=== PATIENT | female | born 1945 | race Caucasian/White ===

== ENCOUNTER 2018-06-15 18:00 | Inpatient (IN) | payer MEDICARE, BC ==
[~2018-06-15] VITALS: Ht 172.7 cm; Wt 67.0 kg
[2018-06-15] VITALS (7 sets, daily range): BP systolic 134–168; BP diastolic 52–68
[~2018-06-15 18:00] MED LIST: LANS30CA56 PO; LISI-222 PO; MULT-1085 PO; OMEG1CAP2 PO; ROPI0.5T2 PO; SIMV80TA2 PO; [UNRECOGNIZED DRUG - CODE] IJ
[2018-06-15] MEDS ORDERED: fentaNYL/PF 50MCG/1 ML 2ML syringe ONE (18:03)
[2018-06-15] MEDS ORDERED: midazolam 2 mg/2 ml injection ONE (18:03)
[2018-06-15] MEDS ORDERED: heparin 1,000unit/ml 10ml vial 10 ML ONE (18:03)
[2018-06-15] MEDS ORDERED: iohexol 350MG/ML 100ml bottle IV ONE (18:04)
[2018-06-15] MEDS ORDERED: heparin 1,000 UNITS/NS 500ml 500 ML ONE (18:04)
[2018-06-15] MEDS ORDERED: LIDOcaine 1% (10mg/ml)w/preservative injection 20ml MDV ONE (18:32)
[2018-06-15] MEDS ORDERED: atropine 0.1mg/ml 10ml syringe ONE (18:44)
[2018-06-15] MEDS ORDERED: heparin 25,000 UNIT/250ml bag 250 ML IV ONE (19:21)
[2018-06-15] MEDS ORDERED: nitroGLYCERIN 1gm ointment UD TP ONE (19:45)
--- NOTE | 2018-06-15 20:30 | NUR ---
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 Pt oriented to room, call light, plan of care and all questions answered. Heparin gtt at 1000units/hr. R groin site dressing clean and intact. R radial site with pressure band on with 10cc of air. Pt lying flat in bed. Post op vitals set. VSS. Will continue to monitor. Addendum: 06/16/18 at 0549 by Shagufta Sampson RN Pt direct admit from [facility] office, no initial ptt lab was drawn before heparin gtt started.
[2018-06-15] MEDS ORDERED: ondansetron/PF 4mg/2ml inj IV PRN (20:35)
[2018-06-15] MEDS ORDERED: acetaminophen 325mg tablet PO PRN (20:35)
[2018-06-15] MEDS ORDERED: HYDROcodone/acetaminophen 10/325mg tab PO PRN (20:35)
[2018-06-15] MEDS ORDERED: HYDROcodone/acetaminophen 5mg/325mg tablet PO PRN (20:35)
[2018-06-15] MEDS ORDERED: proCHLORperazine 10 MG/2 ml inj IV PRN (20:35)
[2018-06-15] MEDS ORDERED: OXAZEpam 15mg capsule PO PRN (20:35)
[2018-06-16 02:00] VITALS: BP 136/53
[2018-06-16 02:47] LABS: CHOL/HDL RATIO 2.7 (0.00-4.99); CHOLESTEROL 125 MG/DL (0-200); HDL CHOLESTEROL 46 MG/DL (35-60); LDL CHOLESTEROL 75 MG/DL (50-100); TRIGLYCERIDES 55 MG/DL (20-135)
--- NOTE | 2018-06-16 05:48 | NUR ---
critical ptt of >153, heparin gtt off. will continue to monitor.
[2018-06-16 06:00] VITALS: BP 136/68
--- NOTE | 2018-06-16 06:15 | NUR ---
Problems reprioritized. Patient report given, questions answered & plan of care reviewed with Emerald BURCH.
[2018-06-16] MEDS ORDERED: clopidogrel 75mg tablet PO SCH (08:00)
[2018-06-16] MEDS ORDERED: CLOP75TA35 PO (08:01)
[2018-06-16] MEDS ORDERED: clopidogrel 75mg tablet PO ONE (09:10)
--- NOTE | 2018-06-16 11:46 | NUR ---
Pt discharged from unit at 1135. Pt discharge packet and education reviewed before signing and sent with patient along with all other belongings. Patient's PIV was removed with cannula intact, and telemetry monitoring was removed. Pt was wheeled down by staff and left via private vehicle with daughter.
== END 2018-06-16 11:57 | disposition home or self-care (01) | DRG 69 ==
LOC: PCU 3S 18:00
PROVIDERS: ADMIT Internal Medicine Interventional Cardiology; ATTEND Internal Medicine Interventional Cardiology
PROC: B41F1ZZ Fluoroscopy of Right Lower Extremity Arteries using Low Osmolar Contrast (ICD-10-PCS; principal; 2018-06-15)
PROC: B31N1ZZ Fluoroscopy of Other Upper Arteries using Low Osmolar Contrast (ICD-10-PCS; 2018-06-15)
DX: G45.8 Other transient cerebral ischemic attacks and related syndromes (principal); I25.10 Atherosclerotic heart disease of native coronary artery without angina pectoris; I10 Essential (primary) hypertension; E78.5 Hyperlipidemia, unspecified; I73.9 Peripheral vascular disease, unspecified; I25.2 Old myocardial infarction; Z95.1 Presence of aortocoronary bypass graft; Z79.01 Long term (current) use of anticoagulants
CPT/HCPCS: 36225; 36415; 80061; 85730; 87070; 99285; A4620; C1760; C1769; G0378; J0461; J1644; J2001; J2250; J3010; J7030; Q9967

== ENCOUNTER 2020-02-29 14:55 | Inpatient (IN) | payer BC, MEDICARE ==
[~2020-02-29] VITALS: Ht 172.7 cm; Wt 63.6 kg
[~2020-02-29 14:55] MED LIST changes: +CLOP75TA35 PO; -ROPI0.5T2 PO; +ROPI0.5T4 PO
[2020-02-29] MEDS ORDERED: normal saline 1000ML IV soln IVB ONE (15:20)
[2020-02-29] MEDS ORDERED: digoxin 250mcg/ml 2ml ampule IV ONE (15:20)
[2020-02-29 15:38] LABS: BASOPHILS % (AUTO) 0.2 % (0-1); EOSINOPHILS % (AUTO) 0 % (0-6); HEMATOCRIT 39.6 % (35.0-45.0); HEMOGLOBIN 11.8 g/dl (12.0-16.0); LYMPHOCYTES # (AUTO) 0.7 X10'3 (1.1-4.8); MEAN CORPUSCULAR HEMOGLOBIN 22.5 PG (27.0-31.0); MEAN CORPUSCULAR HGB CONC 29.7 g/dL (33.0-36.5); MEAN CORPUSCULAR VOLUME 75.8 FL (78-98); MEAN PLATELET VOLUME 11.7 FL (7.4-10.4); MONOCYTES % (AUTO) 5.6 % (2-12); NEUTROPHILS # (AUTO) 15.6 X10'3 (1.8-7.7); NEUTROPHILS % (AUTO) 90.2 % (42-75); PLATELET COUNT 98 X10'3 (140-440); RED BLOOD COUNT 5.23 X10'6 (4.20-5.60); RED CELL DISTRIBUTION WIDTH 20.6 % (11.5-14.5); WHITE BLOOD COUNT 17.3 X10'3 (4.5-11.0)
[2020-02-29 15:51] LABS: PARTIAL THROMBOPLASTIN TIME 30 SECONDS (22-32)
[2020-02-29 16:02] LABS: ALANINE AMINOTRANSFERASE 99 U/L (12-78); ALBUMIN 2.7 G/DL (3.4-5.0); ALBUMIN/GLOBULIN RATIO 0.8 (1.1-1.5); ALKALINE PHOSPHATASE 104 IU/L (46-116); ANION GAP 15 (8-16); ASPARTATE AMINO TRANSFERASE 94 U/L (10-37); BILIRUBIN,TOTAL 2.5 MG/DL (0.1-1.0); BLOOD UREA NITROGEN 69 MG/DL (7-18); BUN/CREATININE RATIO 27.9 (6.6-38.0); CALCIUM 8.9 MG/DL (8.5-10.1); CHLORIDE 105 MMOL/L (99-107); CREATININE 2.47 MG/DL (0.40-0.90); GLUCOSE 68 MG/DL (70-104); MAGNESIUM 2.3 MG/DL (1.5-2.4); SODIUM 145 MMOL/L (135-145); TOTAL CARBON DIOXIDE 25.3 MMOL/L (24-32); TOTAL PROTEIN 6.1 G/DL (6.4-8.2); eGFR 19 ML/MIN
[2020-02-29 16:03] LABS: POTASSIUM 2.5 MMOL/L (3.5-5.1)
[2020-02-29 16:11] LABS: PLATELET ESTIMATE DECREASED
[2020-02-29] MEDS ORDERED: potassium Cl 20 mEq SR tablet PO STA (16:11)
[2020-02-29 16:12] LABS: ANISOCYTOSIS 3+; HYPOCHROMASIA 1+; MICROCYTOSIS 1+; POLYCHROMASIA 1+
[2020-02-29] MEDS ORDERED: potassium Cl 10 mEq/100mL bag IV ONE ×2 (16:15)
[2020-02-29 16:20] LABS: ELLIPTOCYTES 1+; SCHISTOCYTES FEW
[2020-02-29] MEDS ORDERED: magnesium 2GM in 50ml NS 50 ML IV ONE (17:15)
[2020-02-29] MEDS: diltiazem-NS 100mg/100ml 100 ML IV SCH (18:11)
--- NOTE | 2020-02-29 19:15 | NUR ---
HR 140-146, BP 103/51, DR. JAMES UPDATED. PTS 02 SATS 94% ON 2 L, PT REPORTS SHE DOES NOT WEAR O2 AT HOME. PT JUST HAD EPISODE OF INCONTINENCE OF STOOL, DIARRHEA.
--- NOTE | 2020-02-29 20:19 | NUR ---
VERBAL FROM DR. JAMES TO INCREASE CARDIZIEM GTT TO 10 ML/HR. HR 120'S. PT HAD ANOTHER EPISODE OF DIARRHEA INICONTENCE. ASSISTED BY TECH TO CLEAN HERSELF AND BRIEF PLACED. DR JAMES UPDATED OF THIS.
[2020-02-29] MEDS ORDERED: calcium gluconate inj. 1 GM in normal saline 100ml IV soln 100 ML IV ONE (21:30)
[2020-02-29] MEDS ORDERED: CALCIUM GLUC 1gm/50ml NACL,iso 50 ML IV ONE (21:35)
--- NOTE | 2020-02-29 21:35 | NUR ---
DR JAMES AT BEDSIDE TO [facility]. PTS BP 91/59. PT TO BE PRESENTED FOR ADMISSION TO HOSPITALIST.
--- NOTE | 2020-02-29 21:48 | NUR ---
BP 90/68. PER DR. ASHRAF REQUEST, PTS CARDIZIEM GTT DROPPED BACK TO 5 MG/HR (WAS AT 10 ML/HR OVER THE PAST HR AND RATE DOWN TO 80'S). NOW TALKING TO DR. PYLE ABOUT ADMISSION.
[2020-02-29] MEDS ORDERED: ATOR40TA72 PO (22:20)
[2020-02-29] MEDS ORDERED: ROPI0.5T4 PO (22:20)
[2020-02-29] MEDS ORDERED: AMLO5TAB16 PO (22:20)
[2020-02-29] MEDS ORDERED: LISI-600 PO (22:20)
[2020-02-29] MEDS ORDERED: SERT100T10 PO (22:20)
[2020-02-29] MEDS ORDERED: OMEP-50 PO (22:20)
[2020-02-29] MEDS ORDERED: NITR0.4T48 SL (22:20)
--- NOTE | 2020-02-29 22:58 | NUR ---
bp 95/61, hr 103. awaiting hospitalist. ocntinues on 2 liters nc and sats 98%.
--- NOTE | 2020-02-29 23:44 | NUR ---
STRAIGHT CATHED FOR UA. TOTAL URINE OUT 350 CC' TAPAN CLEAR URINE. HR 93-115, AFIB WITH PVC'S. PT CHANGED OUT OF SOILED DIAPER FROM DIARRHEA. SKIN INTAC T. PHOTOS TAKEN OF HER RIGHT TOE WOUNDS.
[2020-03-01 00:04] LABS: CLARITY,URINE CLEAR (Clear); COLOR,URINE YELLOW (Yellow); GLUCOSE, URINE NEGATIVE (Neg); KETONES,URINE NEGATIVE (Neg); LEUKOCYTE ESTERASE ,URINE NEGATIVE (Neg); NITRITES, URINE NEGATIVE (Neg); OCCULT BLOOD,URINE TRACE-INTACT (Neg); PROTEIN,URINE TRACE mg/dl (Neg)
[2020-03-01 00:06] LABS: UA COLLECTION TYPE STRAIGHT CATH
[2020-03-01 00:07] LABS: BACTERIA,URINE 1+ /HPF (Neg); RBC,URINE 0-2 /HPF (0-2); SQUAMOUS EPITHELIAL CELL,UR FEW /LPF (FEW); WBC,URINE 0-4 /HPF (0-4)
[2020-03-01] MEDS ORDERED: mag hydrox/Alum hydrox/simeth 30ml oral suspension PO PRN (00:25)
[2020-03-01] MEDS ORDERED: potassium Cl 40MEQ/1/2NS 520ml 520 ML IV PRN ×2 (00:25)
[2020-03-01] MEDS ORDERED: ondansetron/PF 4mg/2ml inj IV PRN (00:25)
[2020-03-01] MEDS ORDERED: acetaminophen 325mg tablet PO PRN (00:25)
[2020-03-01] MEDS ORDERED: magnesium hydroxide 30ml (MOM) UD suspension PO PRN (00:25)
[2020-03-01] MEDS ORDERED: potassium Cl 20 mEq SR tablet PO PRN ×2 (00:25)
[2020-03-01] MEDS ORDERED: octreotide 100mcg/1 ml ampule SQ ONE ×2 (00:30→01:10)
[2020-03-01] MEDS: normal saline 1000ml 1,000 ML IV SCH (01:01)
--- NOTE | 2020-03-01 01:07 | NUR ---
DR. PYLE AT BEDSIDE FOR ADMISSION. PT GIVEN 1ST DOSE OF SANDOSTATIN SQ. REPORTS PT HAS NOT BEEN TAKING THIS HER HOME MED, SHE HAS NOT REFILLED IT D/T COST. PT CONTINUES ON CARDIZIEM GTT AT 5 MG/HR. BP 94/58. MIVF INFUSING, NS AT 40/HR.
--- NOTE | 2020-03-01 03:54 | NUR ---
Called Dr. Ha to report bp being in the 78/S and he reports to adm NS 250 bolus slowly r/t CHF.
--- NOTE | 2020-03-01 05:51 | NUR ---
DR. PYLE AT BEDSIDE AND UPDATED THAT PTS BP REMAINS LOW AFTER NS BOLUS OF 250. , 94/63, 92/64, 88/57. REPORTS THAT THIS BP IS EXPECTED WITIH HER CURRENT MEDICAL CONDITION. STATES IF PT IS MENTATING WELL AND OTHER VSS, THEN THIS LOWER BP IS ACCEPTABLE AT THIS TIME.
[2020-03-01] MEDS: K and/or MAG REPLACEMENT MC SCH ×2 (08:00→20:00)
[2020-03-01] MEDS ORDERED: octreotide 100mcg/1 ml ampule SQ SCH (08:00)
[2020-03-01 08:59] LABS: EOSINOPHILS % (AUTO) 0 % (0-6); HEMOGLOBIN 12.1 g/dl (12.0-16.0); RED CELL DISTRIBUTION WIDTH 20.7 % (11.5-14.5)
[2020-03-01 09:00] LABS: BASOPHILS % (AUTO) 0 % (0-1); LYMPHOCYTES # (AUTO) 0.8 X10'3 (1.1-4.8); LYMPHOCYTES % (AUTO) 4.9 % (21-51); MEAN CORPUSCULAR HEMOGLOBIN 22.5 PG (27.0-31.0); MEAN CORPUSCULAR HGB CONC 29.6 g/dL (33.0-36.5); MEAN PLATELET VOLUME 12.2 FL (7.4-10.4); MONOCYTES # (AUTO) 1.1 X10'3 (0-0.9); MONOCYTES % (AUTO) 6.6 % (2-12); NEUTROPHILS # (AUTO) 15.4 X10'3 (1.8-7.7); NEUTROPHILS % (AUTO) 88.5 % (42-75); PLATELET COUNT 109 X10'3 (140-440); WHITE BLOOD COUNT 17.4 X10'3 (4.5-11.0)
[2020-03-01 09:25] LABS: ALANINE AMINOTRANSFERASE 94 U/L (12-78); ALBUMIN 2.3 G/DL (3.4-5.0); ALBUMIN/GLOBULIN RATIO 0.7 (1.1-1.5); ALKALINE PHOSPHATASE 97 IU/L (46-116); ANION GAP 13 (8-16); ASPARTATE AMINO TRANSFERASE 90 U/L (10-37); BILIRUBIN,TOTAL 2.2 MG/DL (0.1-1.0); BLOOD UREA NITROGEN 72 MG/DL (7-18); BUN/CREATININE RATIO 30.3 (6.6-38.0); CALCIUM 8.4 MG/DL (8.5-10.1); CHLORIDE 109 MMOL/L (99-107); CREATININE 2.38 MG/DL (0.40-0.90); GLUCOSE 92 MG/DL (70-104); MAGNESIUM 2.7 MG/DL (1.5-2.4); POTASSIUM 3.9 MMOL/L (3.5-5.1); SODIUM 144 MMOL/L (135-145); TOTAL CARBON DIOXIDE 21.6 MMOL/L (24-32); TOTAL PROTEIN 5.6 G/DL (6.4-8.2); eGFR 20 ML/MIN
[2020-03-01 09:28] LABS: ANISOCYTOSIS 3+; MICROCYTOSIS 1+; PLATELET ESTIMATE DECREASED
[2020-03-01 09:29] LABS: BURR CELLS 1+; ELLIPTOCYTES 1+; HYPOCHROMASIA 1+; POIKILOCYTOSIS 1+
[2020-03-01] MEDS: sertraline 50mg tablet PO SCH (09:49)
[2020-03-01] MEDS: octreotide 100mcg/1 ml ampule SQ SCH ×2 (09:49→20:00)
[2020-03-01] MEDS: pantoprazole 40mg Tablet.DR PO SCH (09:49)
[2020-03-01] MEDS: clopidogrel 75mg tablet PO SCH (09:49)
--- NOTE | 2020-03-01 10:18 | NUR ---
Performed pericare as pt was incontinent of stool that was loose. Also transferred pt to a hospital bed.
[2020-03-01] MEDS: diltiazem-NS 100mg/100ml 100 ML IV SCH (11:33)
--- NOTE | 2020-03-01 12:19 | NUR ---
Stopped Cardizem drip as pt's BP is 74/47.
--- NOTE | 2020-03-01 12:26 | NUR ---
Spoke with Dr Fu regarding Cardizem being turned off. Dr Fu agrees with Cardizem being off.
--- NOTE | 2020-03-01 12:27 | NUR ---
Dr Fu at pt's bedside.
[2020-03-01] MEDS ORDERED: normal saline 500ml IV soln 1,000 ML IV ONE (12:35)
[2020-03-01 17:00] VITALS: BP 103/60
--- NOTE | 2020-03-01 17:00 | NUR ---
Patient in room and in bed. Patient was cleaned up and repositioned. VSS: BP:103/60, HR: 57, RR:20, O2: 96% 2LNC, Pain 4/10. Patient orientated to room and items in room. Patient hooked up to oxygen and call light in reach, bed in low lock position. NS running at 40ml/hr, wound pictures taken, patients items prostatic leg in cabinet with clothing, pt had phone by side. Patient Incont, a wick was placed, patient had a liquid BM. Will continue to monitor.
--- NOTE | 2020-03-01 18:37 | NUR ---
Problems reprioritized. Patient report given, questions answered & plan of care reviewed with Bradley BURCH.
[2020-03-01 19:00] VITALS: BP 103/60
[2020-03-01 23:00] VITALS: BP 88/40
[2020-03-02] VITALS (11 sets, daily range): BP systolic 70–118; BP diastolic 45–85
[2020-03-02] MEDS: diltiazem-NS 100mg/100ml 100 ML IV SCH (01:30)
--- NOTE | 2020-03-02 06:10 | NUR ---
Patient in room PCU 3027. I have received report from Alexandria BURCH and had the opportunity to ask questions and assume patient care.
[2020-03-02 06:28] LABS: BASOPHILS % (AUTO) 0.1 % (0-1); EOSINOPHILS % (AUTO) 0 % (0-6); HEMOGLOBIN 11.1 g/dl (12.0-16.0); LYMPHOCYTES # (AUTO) 0.6 X10'3 (1.1-4.8); LYMPHOCYTES % (AUTO) 4.5 % (21-51); MEAN CORPUSCULAR HEMOGLOBIN 22.5 PG (27.0-31.0); MEAN CORPUSCULAR HGB CONC 29.9 g/dL (33.0-36.5); MEAN CORPUSCULAR VOLUME 75.2 FL (78-98); MONOCYTES % (AUTO) 7.2 % (2-12); NEUTROPHILS # (AUTO) 12.1 X10'3 (1.8-7.7); NEUTROPHILS % (AUTO) 88.2 % (42-75); PLATELET COUNT 97 X10'3 (140-440); RED BLOOD COUNT 4.91 X10'6 (4.20-5.60); RED CELL DISTRIBUTION WIDTH 20.2 % (11.5-14.5); WHITE BLOOD COUNT 13.7 X10'3 (4.5-11.0)
[2020-03-02 06:37] LABS: ALANINE AMINOTRANSFERASE 85 U/L (12-78); ALBUMIN 2.2 G/DL (3.4-5.0); ALBUMIN/GLOBULIN RATIO 0.7 (1.1-1.5); ALKALINE PHOSPHATASE 94 IU/L (46-116); ANION GAP 10 (8-16); ASPARTATE AMINO TRANSFERASE 57 U/L (10-37); BILIRUBIN,TOTAL 1.7 MG/DL (0.1-1.0); BLOOD UREA NITROGEN 81 MG/DL (7-18); BUN/CREATININE RATIO 30.9 (6.6-38.0); CALCIUM 8.7 MG/DL (8.5-10.1); CHLORIDE 110 MMOL/L (99-107); CREATININE 2.62 MG/DL (0.40-0.90); GLUCOSE 105 MG/DL (70-104); POTASSIUM 3.3 MMOL/L (3.5-5.1); SODIUM 142 MMOL/L (135-145); TOTAL PROTEIN 5.4 G/DL (6.4-8.2); eGFR 18 ML/MIN
[2020-03-02 07:03] LABS: PLATELET ESTIMATE DECREASED
[2020-03-02 07:04] LABS: ANISOCYTOSIS 3+; ELLIPTOCYTES 1+; HYPOCHROMASIA 1+; LARGE PLATELETS FEW; MICROCYTOSIS 1+; POLYCHROMASIA 1+; SCHISTOCYTES FEW; TARGET CELLS FEW
[2020-03-02 07:05] LABS: BURR CELLS 2+
[2020-03-02] MEDS: sertraline 50mg tablet PO SCH (07:49)
[2020-03-02] MEDS: pantoprazole 40mg Tablet.DR PO SCH (07:49)
[2020-03-02] MEDS: normal saline 1000ml 1,000 ML IV SCH (07:49)
[2020-03-02] MEDS: clopidogrel 75mg tablet PO SCH (07:49)
[2020-03-02] MEDS: K and/or MAG REPLACEMENT MC SCH ×2 (08:00→20:09)
[2020-03-02] MEDS: octreotide 100mcg/1 ml ampule SQ SCH ×2 (09:46→19:41)
--- NOTE | 2020-03-02 10:05 | NUR ---
Dr. Sanchez at bedside with patient and Nurse. is aware of patients Echo results, Atrial Fib Elevated MR. will consult Dr. Tolliver tomorrow to view patient. New orders 25 metoprolol 25 BID Po starting now.Will continue to monitor. Addendum: 03/02/20 at 1150 by Griselda Jones RN Stop Cardizem drip and start Po medication. Per Dr. Sanchez
[2020-03-02] MEDS ORDERED: atropine 0.1mg/ml 10ml syringe ONE (15:00)
[2020-03-02] MEDS ORDERED: amiodarone 50MG/ML inj IV ONE (15:00)
[2020-03-02] MEDS ORDERED: sod chloride 0.9% 10ml flush syringe IV ONE (15:00)
[2020-03-02] MEDS ORDERED: epiNEPHrine 0.1mg/ml 10ml syringe ONE (15:00)
[2020-03-02] MEDS ORDERED: etomidate 2mg/ml inj. ONE (15:00)
--- NOTE | 2020-03-02 18:00 | NUR ---
Patient in room PCU 3027. I have received report from Griselda BURCH and had the opportunity to ask questions and assume patient care.
--- NOTE | 2020-03-02 18:41 | NUR ---
Problems reprioritized. Patient report given, questions answered & plan of care reviewed with Beena BURCH.
--- NOTE | 2020-03-02 18:56 | NUR ---
6 beat vtach PAGER ID: [phone] MESSAGE: [id number] Chuyita Alexander: 6 beat v-tach, asymptomatic, potassium low and replacing. Shyann BURCH [id number]
[2020-03-02] MEDS ORDERED: potassium chloride 10mEq ER tablet PO ONE (19:10)
[2020-03-02] MEDS ORDERED: metoprolol succinate 25mg (24-HOUR) SR. Tablet PO SCH (20:00)
[2020-03-02] MEDS ORDERED: furosemide 20 MG/2 ML vial IV SCH (20:00)
[2020-03-03 02:00] VITALS: BP 85/60
[2020-03-03] MEDS: normal saline 1000ml 1,000 ML IV SCH (03:15)
--- NOTE | 2020-03-03 05:44 | NUR ---
Patient Passed Patient went into v-tach at 0444, code blue was called CPR was initiated immediately. Shocked x two, Epi x 3, Amiodarone x 1 with no success. Ultrasound performed. MD Delatorre pronounced time of 0502. Fidelia Alexander notified and family stated that they will arrive as soon as possible and also contact the rest of the family. Donor network called, patient is not a candidate.
--- NOTE | 2020-03-03 06:13 | NUR ---
Patient moved to room 3019. Patient report given to Caitlin BURCH. Awaiting family to arrive.
--- NOTE | 2020-03-03 06:18 | NUR ---
Patient in room PCU 3019. I have received report from Shyann BURCH and had the opportunity to ask questions and assume patient care.
--- NOTE | 2020-03-03 08:33 | NUR ---
Patient belongings sent home with [facility]
== END 2020-03-03 09:42 | disposition expired | DRG 308 ==
LOC: ER 14:56 → ED HOLD 03-01 00:23 → PCU 3S 03-01 17:04
PROVIDERS: ADMIT Internal Medicine; ATTEND Internal Medicine
PROC: 0BH17EZ Insertion of Endotracheal Airway into Trachea, Via Natural or Artificial Opening (ICD-10-PCS; principal; 2020-03-03)
PROC: 5A12012 Performance of Cardiac Output, Single, Manual (ICD-10-PCS; 2020-03-03)
PROC: 5A2204Z Restoration of Cardiac Rhythm, Single (ICD-10-PCS; 2020-03-03)
PROC: 5A2204Z Restoration of Cardiac Rhythm, Single (ICD-10-PCS; 2020-03-03)
DX: I48.11 Longstanding persistent atrial fibrillation (principal); I50.23 Acute on chronic systolic (congestive) heart failure; N17.9 Acute kidney failure, unspecified; E34.0 Carcinoid syndrome; I11.0 Hypertensive heart disease with heart failure; E11.621 Type 2 diabetes mellitus with foot ulcer; E87.6 Hypokalemia; F17.200 Nicotine dependence, unspecified, uncomplicated; F32.9 Major depressive disorder, single episode, unspecified; I08.1 Rheumatic disorders of both mitral and tricuspid valves; I49.01 Ventricular fibrillation; K21.9 Gastro-esophageal reflux disease without esophagitis; E11.51 Type 2 diabetes mellitus with diabetic peripheral angiopathy without gangrene; E86.0 Dehydration; M10.9 Gout, unspecified; I95.9 Hypotension, unspecified; I25.10 Atherosclerotic heart disease of native coronary artery without angina pectoris; J44.9 Chronic obstructive pulmonary disease, unspecified; I46.9 Cardiac arrest, cause unspecified; L97.519 Non-pressure chronic ulcer of other part of right foot with unspecified severity; I25.2 Old myocardial infarction; Z83.3 Family history of diabetes mellitus; Z89.512 Acquired absence of left leg below knee; Z91.19 Patient's noncompliance with other medical treatment and regimen; Z95.1 Presence of aortocoronary bypass graft; Z79.899 Other long term (current) drug therapy
CPT/HCPCS: 36415; 71045; 80053; 81001; 81003; 83735; 83880; 84443; 84484; 85008; 85025; 85610; 85730; 87081; 92950; 93005; 93306; 93308; 96374; 99285; G0378; J0171; J0461; J1160; J1940; J2354; J3475; J3480; J3490; J7030; J7040